=== PATIENT | male | born 1940 | race Caucasian/White ===

== ENCOUNTER 2018-09-30 16:12 | Observation (INO) | payer MEDICARE ==
[2018-09-30] MEDS ORDERED: Dextrose 5%-0.9% NaCl 1,000 ML IV SCH (17:45)
[2018-09-30] MEDS: Dextrose 5%-0.9% NaCl with KCl 1,000 ML IV SCH (19:50)
[2018-09-30] MEDS: Apixaban 5 MG Tab PO SCH (20:11)
[2018-09-30] MEDS: MAGIC MOUTH WASH PO SCH (20:11)
[2018-09-30] MEDS ORDERED: Acetaminophen 325 MG Tab ONE (21:35)
[2018-09-30] MEDS ORDERED: cefTRIAXone 1 GM AdvVial IV ONE (21:35)
[2018-09-30] MEDS: cefTRIAXone 1 GM in Sodium Chloride 0.9% 50 ML IV SCH (21:53)
[2018-09-30] MEDS: Acetaminophen/oxyCODONE 325-5 MG Tab PO PRN (22:02)
[2018-09-30] MEDS: Acetaminophen 325 MG Tab PO PRN (22:05)
[2018-10-01] MEDS: Acetaminophen/oxyCODONE 325-5 MG Tab PO PRN ×2 (01:44→07:50)
[2018-10-01] MEDS ORDERED: Dextrose 5%-0.9% NaCl with KCl 1,000 ML ONE ×3 (03:56→19:36)
[2018-10-01] MEDS: Dextrose 5%-0.9% NaCl with KCl 1,000 ML IV SCH ×3 (04:00→19:45)
[2018-10-01] MEDS: Acetaminophen 325 MG Tab PO PRN (04:06)
[2018-10-01] MEDS: Morphine 15 MG Tab.ER PO SCH (07:49)
[2018-10-01] MEDS: Apixaban 5 MG Tab PO SCH ×2 (07:49→19:48)
[2018-10-01] MEDS: Tamsulosin 0.4 MG Cap.ER PO SCH (07:51)
[2018-10-01] MEDS: MAGIC MOUTH WASH PO SCH ×4 (08:39→21:14)
--- NOTE | 2018-10-01 09:48 | PCM.PN ---
- General Info Date of Service: 10/01/18 Subjective Update: Patient showing improvement but still weakness and decreased appetite. He has continued sores and the vicous lidocaine only works for 15 minute when he applies it. Patient denies any dizziness, no shortness of breath, no chest pain and no other concerns. - Review of Systems General: Reports: Weakness HEENT: Reports: No Symptoms Pulmonary: Reports: No Symptoms Cardiovascular: Reports: No Symptoms Gastrointestinal: Reports: No Symptoms Genitourinary: Reports: No Symptoms Musculoskeletal: Reports: No Symptoms Skin: Reports: No Symptoms Neurological: Reports: Weakness Psychiatric: Reports: No Symptoms - Patient Data Vitals - Most Recent: Last Vital Signs Temp 37.8 C 10/01/18 04:00 Pulse 73 10/01/18 04:00 Resp 16 09/30/18 20:35 BP 103/59 L 10/01/18 04:00 Pulse Ox 97 10/01/18 04:00 Weight - Most Recent: 66.406 kg I&O - Last 24 Hours: Intake & Output 09/30/18 10/01/18 10/01/18 22:59 06:59 14:59 Intake Total 1450 Balance 1450 Lab Results Last 24 Hours: Laboratory Results - last 24 hr 09/30/18 09/30/18 09/30/18 Range/Units 16:18 16:18 16:26 WBC 3.9 L D (4.0-11.0) K/uL RBC 3.93 L (4.50-6.50) M/uL Hgb 10.4 L (13.0-18.0) g/dL Hct 33.1 L (40.0-54.0) % MCV 84 (76-96) fL MCH 26.5 L (27.0-32.0) pg MCHC 31.4 (31.0-35.0) g/dL RDW 14.9 (11.0-16.0) % Plt Count 313 D (150-400) K/uL MPV 9.0 (6.0-10.0) fL Neut % (Auto) 38.2 L (45.0-70.0) % Lymph % (Auto) 53.5 H (20.0-40.0) % [place] % (Auto) 7.0 (3.0-10.0) % Eos % (Auto) 0.8 L (1.0-5.0) % Baso % (Auto) 0.5 (0.0-0.5) % Neut # (Auto) 1.47 L (2.00-7.50) K/uL Lymph # (Auto) 2.06 (1.50-4.00) K/uL [place] # (Auto) 0.27 (0.20-0.80) K/uL Eos # (Auto) 0.03 L (0.04-0.40) K/uL Baso # (Auto) 0.02 (0.02-0.10) K/uL Sodium 137 (136-145) mmol/L Potassium 3.3 L (3.5-5.1) mmol/L Chloride 98 (98-107) mmol/L Carbon Dioxide 24.1 (21.0-32.0) mmol/L Anion Gap 18.2 H (5.0-15.0) mmol/L BUN 19 (8-26) mg/dL Creatinine 0.98 (0.70-1.30) mg/dL Est Cr Clr Drug Dosing TNP Estimated GFR (MDRD) > 60 (>60) MLS/MIN BUN/Creatinine Ratio 19.4 (6-25) Glucose 100 (74-100) mg/dL Calcium 8.0 L (8.5-10.1) mg/dL Total Bilirubin 0.3 (0.0-1.0) mg/dL AST 24 (15-37) U/L ALT 32 (12-78) U/L Alkaline Phosphatase 178 H (46-116) U/L Troponin I < 0.017 (0.000-0.060) ng/mL Total Protein 7.2 (6.4-8.2) g/dL Albumin 3.0 L (3.4-5.0) g/dL Globulin 4.2 (2.2-4.2) g/dL Albumin/Globulin Ratio 0.7 L (0.8-2.0) TSH, Ultra Sensitive 6.770 H (0.358-3.740) uIU/mL Urine Color Yellow Urine Appearance Clear (CLEAR) Urine pH 6.5 (5.0-8.0) Ur Specific [place] 1.025 (1.003-1.030) Urine Protein 30 H (NEGATIVE) mg/dL Urine Glucose (UA) Negative (NEGATIVE) mg/dL Urine Ketones Negative (NEGATIVE) mg/dL Urine Occult Blood Negative (NEGATIVE) Urine Nitrite Negative (NEGATIVE) Urine Bilirubin Small H (NEGATIVE) Urine Urobilinogen 1.0 (0.2-1.0) E.U./dL Ur Leukocyte Esterase Negative (NEGATIVE) Urine RBC Not seen /HPF Urine WBC 0-5 H /HPF Ur Squamous Epith Cells Few /HPF 10/01/18 10/01/18 Range/Units 07:33 07:33 WBC 2.4 L D (4.0-11.0) K/uL RBC 3.19 L (4.50-6.50) M/uL Hgb 8.5 L (13.0-18.0) g/dL Hct 26.7 L (40.0-54.0) % MCV 84 (76-96) fL MCH 26.6 L (27.0-32.0) pg MCHC 31.8 (31.0-35.0) g/dL RDW 14.8 (11.0-16.0) % Plt Count 283 (150-400) K/uL MPV 8.8 (6.0-10.0) fL Neut % (Auto) 38.5 L (45.0-70.0) % Lymph % (Auto) 48.3 H (20.0-40.0) % [place] % (Auto) 12.4 H (3.0-10.0) % Eos % (Auto) 0.4 L (1.0-5.0) % Baso % (Auto) 0.4 (0.0-0.5) % Neut # (Auto) 0.93 L (2.00-7.50) K/uL Lymph # (Auto) 1.17 L (1.50-4.00) K/uL [place] # (Auto) 0.30 (0.20-0.80) K/uL Eos # (Auto) 0.01 L (0.04-0.40) K/uL Baso # (Auto) 0.01 L (0.02-0.10) K/uL Sodium 139 (136-145) mmol/L Potassium 3.4 L (3.5-5.1) mmol/L Chloride 105 (98-107) mmol/L Carbon Dioxide 24.3 (21.0-32.0) mmol/L Anion Gap 13.1 (5.0-15.0) mmol/L BUN 18 (8-26) mg/dL Creatinine 0.63 L D (0.70-1.30) mg/dL Est Cr Clr Drug Dosing TNP Estimated GFR (MDRD) > 60 (>60) MLS/MIN BUN/Creatinine Ratio 28.6 H (6-25) Glucose 123 H (74-100) mg/dL Calcium 7.3 L (8.5-10.1) mg/dL Total Bilirubin 0.3 (0.0-1.0) mg/dL AST 22 (15-37) U/L ALT 24 (12-78) U/L Alkaline Phosphatase 145 H (46-116) U/L Troponin I (0.000-0.060) ng/mL Total Protein 5.2 L (6.4-8.2) g/dL Albumin 2.4 L (3.4-5.0) g/dL Globulin 2.8 (2.2-4.2) g/dL Albumin/Globulin Ratio 0.9 (0.8-2.0) TSH, Ultra Sensitive (0.358-3.740) uIU/mL Urine Color Urine Appearance (CLEAR) Urine pH (5.0-8.0) Ur Specific [place] (1.003-1.030) Urine Protein (NEGATIVE) mg/dL Urine Glucose (UA) (NEGATIVE) mg/dL Urine Ketones (NEGATIVE) mg/dL Urine Occult Blood (NEGATIVE) Urine Nitrite (NEGATIVE) Urine Bilirubin (NEGATIVE) Urine Urobilinogen (0.2-1.0) E.U./dL Ur Leukocyte Esterase (NEGATIVE) Urine RBC /HPF Urine WBC /HPF Ur Squamous Epith Cells /HPF Med Orders - Current: Current Medications Acetaminophen (Tylenol) 650 mg PO Q6H PRN PRN Reason: Fever Last Admin: 10/01/18 04:06 Dose: 650 mg Apixaban (Eliquis) 5 mg PO BID [facility] Last Admin: 10/01/18 07:49 Dose: 5 mg Potassium Chloride/Dextrose/Sod Cl (D5 Ns With 20 Meq Kcl) 1,000 mls @ 125 mls/ hr IV ASDIRECTED [facility] Last Admin: 10/01/18 04:00 Dose: 125 mls/hr Ceftriaxone Sodium 1 gm/ (Sodium Chloride) 50 mls @ 100 mls/hr IV Q24H [facility] Last Admin: 09/30/18 21:53 Dose: 100 mls/hr Morphine Sulfate (Ms Contin) 15 mg PO DAILY [facility] Last Admin: 10/01/18 07:49 Dose: 15 mg Magic Mouth Wash 10 each PO QID [facility] Last Admin: 10/01/18 08:39 Dose: 10 each Oxycodone/Acetaminophen (Percocet 325-5 Mg) 1 tab PO Q4H PRN PRN Reason: PAIN Last Admin: 10/01/18 07:50 Dose: 1 tab Tamsulosin HCl (Flomax) 0.4 mg PO DAILY [facility] Last Admin: 10/01/18 07:51 Dose: 0.4 mg Discontinued Medications Acetaminophen (Tylenol) Confirm Administered Dose 650 mg .ROUTE .STK-MED ONE Stop: 09/30/18 21:36 Last Admin: 09/30/18 22:11 Dose: Not Given Ceftriaxone Sodium (Rocephin) Confirm Administered Dose 1 gm IV .STK-MED ONE Stop: 09/30/18 21:36 Last Admin: 09/30/18 22:11 Dose: Not Given Potassium Chloride/Dextrose/Sod Cl (D5 Ns With 20 Meq Kcl) Confirm Administered Dose 1,000 mls @ as directed .ROUTE .STK-MED ONE Stop: 10/01/18 03:57 Last Admin: 10/01/18 04:10 Dose: Not Given - Exam General: Alert, Oriented, Cooperative HEENT: Pupils Equal, Pupils Reactive, EOMI Neck: Supple Lungs: Clear to Auscultation, Normal Respiratory Effort Cardiovascular: Regular Rate, Regular Rhythm GI/Abdominal Exam: Normal Bowel Sounds Back Exam: Normal Inspection Extremities: Normal Inspection, Normal Range of Motion - Problem List & Annotations (1) Weakness SNOMED Code(s): 46075971 Code(s): R53.1 - WEAKNESS Status: Acute (2) Anemia SNOMED Code(s): 606508577 Code(s): D64.9 - ANEMIA, UNSPECIFIED Status: Acute (3) Dehydration SNOMED Code(s): 50265586 Code(s): E86.0 - DEHYDRATION Status: Acute (4) Electrolyte abnormality SNOMED Code(s): 703056996 Code(s): E87.8 - OTH DISORDERS OF ELECTROLYTE AND FLUID BALANCE, NEC Status : Acute (5) Aphthous ulcer of mouth SNOMED Code(s): 598447067 Code(s): K12.0 - RECURRENT ORAL APHTHAE Status: Acute (6) Thrush SNOMED Code(s): 24451867 Code(s): B37.0 - CANDIDAL STOMATITIS Status: Acute - Problem List Review Problem List Initiated/Reviewed/Updated: Yes - My Orders Last 24 Hours: My Active Orders 09/30/18 17:40 Patient Status [ADT] Routine Oxygen Therapy [RC] PRN Up With Assistance [RC] ASDIRECTED Vital Signs [RC] Q4H Resuscitation Status Routine 09/30/18 18:06 Acetaminophen/oxyCODONE [Percocet 325-5 MG] 1 tab PO Q4H PRN 09/30/18 18:15 Dextrose 5%-0.9% NaCl with KCl [D5 NS with 20 mEq KCl] 1,000 ml IV ASDIRECTED 09/30/18 20:00 Apixaban [Eliquis] 5 mg PO BID Non-Formulary Medication [NF Drug] 10 each PO QID 09/30/18 21:29 Acetaminophen [Tylenol] 650 mg PO Q6H PRN 09/30/18 22:00 cefTRIAXone [Rocephin] 1 gm Sodium Chloride 0.9% [Normal Saline] 50 ml IV Q24H 10/01/18 08:00 Morphine [MS Contin] 15 mg PO DAILY Tamsulosin [Flomax] 0.4 mg PO DAILY 10/01/18 09:39 CULTURE BLOOD [BC] Routine 10/01/18 09:40 CULTURE BLOOD [BC] Routine - Plan Plan:: Counseled on continued management of oral ulcers and management of thrush. Discussed anemia and blood transfusion and continued monitoring. We will f/u thyroid labs. Continue hydration and repeat labs in am.
--- NOTE | 2018-10-01 09:48 | PCM.HP ---
H&P History of Present Illness - General Date of Service: 09/30/18 Admit Problem/Dx: Admission Diagnosis/Problem Admission Diagnosis/Problem Weakness Source of Information: Patient, Family History Limitations: Reports: No Limitations - History of Present Illness Initial Comments - Free Text/Narative: This is a 78yo M with recent radiation therapy who presented to clinic with weakness, fatigue, not eating for 3 days and very little hydration. He has multiple lesions of the tongue, and white patches of the back of the tongue. He states he doesn't feel well and just all over. Duration of Symptoms: Reports: Day(s):, Getting Worse Quality: Reports: Burning Severity: Moderate Improves with: Reports: None Worsens with: Reports: Eating Associated Symptoms: Reports: Loss of Appetite, Weakness Oral/Mouth Pain Score (Numeric/FACES): 5 - Related Data Allergies/Adverse Reactions: Allergies Allergy/AdvReac Type Severity Reaction Status Date / Time No Known Allergies Allergy Verified 08/28/18 17:39 Social & Family History - Tobacco Use Smoking Status *Q: Unknown Ever Smoked H&P Review of Systems - Review of Systems: Review Of Systems: ROS reveals no pertinent complaints other than HPI. Exam - Exam Exam: See Below - Vital Signs Vital Signs: Last Vital Signs Temp 37.8 C 10/01/18 04:00 Pulse 73 10/01/18 04:00 Resp 16 09/30/18 20:35 BP 103/59 L 10/01/18 04:00 Pulse Ox 97 10/01/18 04:00 Weight: 66.406 kg - Exam General: Alert, Oriented, Cooperative HEENT: PERRLA, Conjunctiva Clear, EACs Clear Neck: Supple, Trachea Midline Lungs: Clear to Auscultation, Normal Respiratory Effort Cardiovascular: Regular Rate, Regular Rhythm GI/Abdominal Exam: Abnormal Bowel Sounds (decreased) Back Exam: Normal Inspection Extremities: Normal Inspection - Patient Data Lab Results Last 24 hrs: Laboratory Results - last 24 hr 09/30/18 09/30/18 09/30/18 Range/Units 16:18 16:18 16:26 WBC 3.9 L D (4.0-11.0) K/uL RBC 3.93 L (4.50-6.50) M/uL Hgb 10.4 L (13.0-18.0) g/dL Hct 33.1 L (40.0-54.0) % MCV 84 (76-96) fL MCH 26.5 L (27.0-32.0) pg MCHC 31.4 (31.0-35.0) g/dL RDW 14.9 (11.0-16.0) % Plt Count 313 D (150-400) K/uL MPV 9.0 (6.0-10.0) fL Neut % (Auto) 38.2 L (45.0-70.0) % Lymph % (Auto) 53.5 H (20.0-40.0) % [place] % (Auto) 7.0 (3.0-10.0) % Eos % (Auto) 0.8 L (1.0-5.0) % Baso % (Auto) 0.5 (0.0-0.5) % Neut # (Auto) 1.47 L (2.00-7.50) K/uL Lymph # (Auto) 2.06 (1.50-4.00) K/uL [place] # (Auto) 0.27 (0.20-0.80) K/uL Eos # (Auto) 0.03 L (0.04-0.40) K/uL Baso # (Auto) 0.02 (0.02-0.10) K/uL Sodium 137 (136-145) mmol/L Potassium 3.3 L (3.5-5.1) mmol/L Chloride 98 (98-107) mmol/L Carbon Dioxide 24.1 (21.0-32.0) mmol/L Anion Gap 18.2 H (5.0-15.0) mmol/L BUN 19 (8-26) mg/dL Creatinine 0.98 (0.70-1.30) mg/dL Est Cr Clr Drug Dosing TNP Estimated GFR (MDRD) > 60 (>60) MLS/MIN BUN/Creatinine Ratio 19.4 (6-25) Glucose 100 (74-100) mg/dL Calcium 8.0 L (8.5-10.1) mg/dL Total Bilirubin 0.3 (0.0-1.0) mg/dL AST 24 (15-37) U/L ALT 32 (12-78) U/L Alkaline Phosphatase 178 H (46-116) U/L Troponin I < 0.017 (0.000-0.060) ng/mL Total Protein 7.2 (6.4-8.2) g/dL Albumin 3.0 L (3.4-5.0) g/dL Globulin 4.2 (2.2-4.2) g/dL Albumin/Globulin Ratio 0.7 L (0.8-2.0) TSH, Ultra Sensitive 6.770 H (0.358-3.740) uIU/mL Urine Color Yellow Urine Appearance Clear (CLEAR) Urine pH 6.5 (5.0-8.0) Ur Specific [place] 1.025 (1.003-1.030) Urine Protein 30 H (NEGATIVE) mg/dL Urine Glucose (UA) Negative (NEGATIVE) mg/dL Urine Ketones Negative (NEGATIVE) mg/dL Urine Occult Blood Negative (NEGATIVE) Urine Nitrite Negative (NEGATIVE) Urine Bilirubin Small H (NEGATIVE) Urine Urobilinogen 1.0 (0.2-1.0) E.U./dL Ur Leukocyte Esterase Negative (NEGATIVE) Urine RBC Not seen /HPF Urine WBC 0-5 H /HPF Ur Squamous Epith Cells Few /HPF 10/01/18 10/01/18 Range/Units 07:33 07:33 WBC 2.4 L D (4.0-11.0) K/uL RBC 3.19 L (4.50-6.50) M/uL Hgb 8.5 L (13.0-18.0) g/dL Hct 26.7 L (40.0-54.0) % MCV 84 (76-96) fL MCH 26.6 L (27.0-32.0) pg MCHC 31.8 (31.0-35.0) g/dL RDW 14.8 (11.0-16.0) % Plt Count 283 (150-400) K/uL MPV 8.8 (6.0-10.0) fL Neut % (Auto) 38.5 L (45.0-70.0) % Lymph % (Auto) 48.3 H (20.0-40.0) % [place] % (Auto) 12.4 H (3.0-10.0) % Eos % (Auto) 0.4 L (1.0-5.0) % Baso % (Auto) 0.4 (0.0-0.5) % Neut # (Auto) 0.93 L (2.00-7.50) K/uL Lymph # (Auto) 1.17 L (1.50-4.00) K/uL [place] # (Auto) 0.30 (0.20-0.80) K/uL Eos # (Auto) 0.01 L (0.04-0.40) K/uL Baso # (Auto) 0.01 L (0.02-0.10) K/uL Sodium 139 (136-145) mmol/L Potassium 3.4 L (3.5-5.1) mmol/L Chloride 105 (98-107) mmol/L Carbon Dioxide 24.3 (21.0-32.0) mmol/L Anion Gap 13.1 (5.0-15.0) mmol/L BUN 18 (8-26) mg/dL Creatinine 0.63 L D (0.70-1.30) mg/dL Est Cr Clr Drug Dosing TNP Estimated GFR (MDRD) > 60 (>60) MLS/MIN BUN/Creatinine Ratio 28.6 H (6-25) Glucose 123 H (74-100) mg/dL Calcium 7.3 L (8.5-10.1) mg/dL Total Bilirubin 0.3 (0.0-1.0) mg/dL AST 22 (15-37) U/L ALT 24 (12-78) U/L Alkaline Phosphatase 145 H (46-116) U/L Troponin I (0.000-0.060) ng/mL Total Protein 5.2 L (6.4-8.2) g/dL Albumin 2.4 L (3.4-5.0) g/dL Globulin 2.8 (2.2-4.2) g/dL Albumin/Globulin Ratio 0.9 (0.8-2.0) TSH, Ultra Sensitive (0.358-3.740) uIU/mL Urine Color Urine Appearance (CLEAR) Urine pH (5.0-8.0) Ur Specific [place] (1.003-1.030) Urine Protein (NEGATIVE) mg/dL Urine Glucose (UA) (NEGATIVE) mg/dL Urine Ketones (NEGATIVE) mg/dL Urine Occult Blood (NEGATIVE) Urine Nitrite (NEGATIVE) Urine Bilirubin (NEGATIVE) Urine Urobilinogen (0.2-1.0) E.U./dL Ur Leukocyte Esterase (NEGATIVE) Urine RBC /HPF Urine WBC /HPF Ur Squamous Epith Cells /HPF Result Diagrams: 10/02/18 07:05 10/02/18 07:05 - Problem List (1) Anemia SNOMED Code(s): 429858462 ICD Code: D64.9 - ANEMIA, UNSPECIFIED Status: Acute (2) Aphthous ulcer of mouth SNOMED Code(s): 207064977 ICD Code: K12.0 - RECURRENT ORAL APHTHAE Status: Acute (3) Dehydration SNOMED Code(s): 74742960 ICD Code: E86.0 - DEHYDRATION Status: Acute (4) Electrolyte abnormality SNOMED Code(s): 123404945 ICD Code: E87.8 - OTH DISORDERS OF ELECTROLYTE AND FLUID BALANCE, NEC Status: Acute (5) Thrush SNOMED Code(s): 22189300 ICD Code: B37.0 - CANDIDAL STOMATITIS Status: Acute (6) Weakness SNOMED Code(s): 49576746 ICD Code: R53.1 - WEAKNESS Status: Acute Problem List Initiated/Reviewed/Updated: Yes Orders Last 24hrs: Active Orders 24 hr Category Date Time Status Patient Status [ADT] Routine ADT 09/30/18 17:40 Active Oxygen Therapy [RC] PRN Care 09/30/18 17:40 Active Up With Assistance [RC] ASDIRECTED Care 09/30/18 17:40 Active Vital Signs [RC] Q4H Care 09/30/18 17:40 Active CULTURE BLOOD [BC] Routine Lab 10/01/18 09:39 Ordered CULTURE BLOOD [BC] Routine Lab 10/01/18 09:40 Ordered Acetaminophen [Tylenol] Med 09/30/18 21:29 Active 650 mg PO Q6H PRN Acetaminophen/oxyCODONE [Percocet 325-5 MG] Med 09/30/18 18:06 Active 1 tab PO Q4H PRN Apixaban [Eliquis] Med 09/30/18 20:00 Active 5 mg PO BID Dextrose 5%-0.9% NaCl with KCl [D5 NS with 20 mEq KCl] Med 09/30/18 18:15 Active 1,000 ml IV ASDIRECTED Morphine [MS Contin] Med 10/01/18 08:00 Active 15 mg PO DAILY Non-Formulary Medication [NF Drug] Med 09/30/18 20:00 Active 10 each PO QID Tamsulosin [Flomax] Med 10/01/18 08:00 Active 0.4 mg PO DAILY cefTRIAXone [Rocephin] 1 gm Med 09/30/18 22:00 Active Sodium Chloride 0.9% [Normal Saline] 50 ml IV Q24H Resuscitation Status Routine Resus Stat 09/30/18 17:40 Ordered Medication Orders Acetaminophen (Tylenol) 650 mg PO Q6H PRN PRN Reason: Fever Last Admin: 10/01/18 04:06 Dose: 650 mg Admin: 09/30/18 22:05 Dose: 325 mg Apixaban (Eliquis) 5 mg PO BID [facility] Last Admin: 10/01/18 07:49 Dose: 5 mg Admin: 09/30/18 20:11 Dose: 5 mg Potassium Chloride/Dextrose/Sod Cl (D5 Ns With 20 Meq Kcl) 1,000 mls @ 125 mls/ hr IV ASDIRECTED [facility] Last Admin: 10/01/18 04:00 Dose: 125 mls/hr Infusion: 10/01/18 03:50 Dose: 125 mls/hr Admin: 09/30/18 19:50 Dose: 125 mls/hr Ceftriaxone Sodium 1 gm/ (Sodium Chloride) 50 mls @ 100 mls/hr IV Q24H [facility] Last Admin: 09/30/18 21:53 Dose: 100 mls/hr Morphine Sulfate (Ms Contin) 15 mg PO DAILY [facility] Last Admin: 10/01/18 07:49 Dose: 15 mg Magic Mouth Wash 10 each PO QID [facility] Last Admin: 10/01/18 08:39 Dose: 10 each Admin: 09/30/18 20:11 Dose: Not Given Oxycodone/Acetaminophen (Percocet 325-5 Mg) 1 tab PO Q4H PRN PRN Reason: PAIN Last Admin: 10/01/18 07:50 Dose: 1 tab Admin: 10/01/18 01:44 Dose: 1 tab Admin: 09/30/18 22:02 Dose: 1 tab Tamsulosin HCl (Flomax) 0.4 mg PO DAILY [facility] Last Admin: 10/01/18 07:51 Dose: 0.4 mg Assessment/Plan Comment:: Patient to be placed in observation for weakness, dehydration and IVF hydration. We will f/u anemia, weakness and manage apthous ulcers and thrush. F/ u in am.
[2018-10-01] MEDS: MG PLUS PROTEIN PO SCH ×3 (11:04→19:49)
[2018-10-01] MEDS ORDERED: Loperamide 2 MG Cap PO PRN (12:18)
[2018-10-01] MEDS: cefTRIAXone 1 GM in Sodium Chloride 0.9% 50 ML IV SCH (21:52)
[2018-10-02] MEDS ORDERED: Dextrose 5%-0.9% NaCl with KCl 1,000 ML ONE (04:21)
[2018-10-02] MEDS: Dextrose 5%-0.9% NaCl with KCl 1,000 ML IV SCH (04:24)
[2018-10-02] MEDS: Acetaminophen/oxyCODONE 325-5 MG Tab PO PRN (05:36)
[2018-10-02] MEDS: MAGIC MOUTH WASH PO SCH ×2 (06:25→11:36)
[2018-10-02] MEDS: Morphine 15 MG Tab.ER PO SCH (07:07)
[2018-10-02] MEDS: Apixaban 5 MG Tab PO SCH (08:05)
[2018-10-02] MEDS: Tamsulosin 0.4 MG Cap.ER PO SCH (08:06)
[2018-10-02] MEDS: MG PLUS PROTEIN PO SCH (08:06)
--- NOTE | 2018-10-02 14:02 | PCM.DCSUM1 ---
Discharge Summary - Discharge Data Discharge Date: 10/02/18 Discharge Disposition: Home, Self-Care 01 Condition: Good - Patient Instructions Diet: Usual Diet as Tolerated Activity: Rest and Relax Today Driving: Do Not Drive - Discharge Plan Patient Handouts: Neutropenia - Discharge Summary/Plan Comment DC Time >30 min.: No Discharge Summary/Plan Comment: Patient setup with Home health and cares. He will f/u at [facility] for labs and Oncology. RTC next week for f/u skin irritation of the port area with trial of Eucrisa at this time. Patient to f/u in ER or clinic if any concerns or issues. Discussed low blood pressure but patient denies any symptoms of dizziness and feels that his weakness has resolved. Discussed low WBC and monitoring. He has been low and his Oncologist is also monitoring it. Discussed anemia and f/u recheck. Sister, son and Viridiana (home health) present on discharge and instructions. - Patient Data Vitals - Most Recent: Last Vital Signs Temp 37.3 C 10/02/18 08:00 Pulse 67 10/02/18 08:00 Resp 16 10/02/18 08:00 BP 90/51 L 10/02/18 08:00 Pulse Ox 97 10/02/18 08:00 Weight - Most Recent: 66.224 kg I&O - Last 24 hours: Intake & Output 10/01/18 10/02/18 10/02/18 22:59 06:59 14:59 Intake Total 740 3111 Balance 740 3111 Lab Results - Last 24 hrs: Laboratory Results - last 24 hr 10/01/18 10/02/18 10/02/18 Range/Units 07:30 07:05 07:05 WBC 3.2 L D (4.0-11.0) K/uL RBC 3.65 L (4.50-6.50) M/uL Hgb 9.6 L (13.0-18.0) g/dL Hct 30.2 L (40.0-54.0) % MCV 83 (76-96) fL MCH 26.3 L (27.0-32.0) pg MCHC 31.8 (31.0-35.0) g/dL RDW 15.6 (11.0-16.0) % Plt Count 270 (150-400) K/uL MPV 9.3 (6.0-10.0) fL Neut % (Auto) 41.8 L (45.0-70.0) % Lymph % (Auto) 42.7 H (20.0-40.0) % [place] % (Auto) 14.6 H (3.0-10.0) % Eos % (Auto) 0.6 L (1.0-5.0) % Baso % (Auto) 0.3 (0.0-0.5) % Neut # (Auto) 1.32 L (2.00-7.50) K/uL Lymph # (Auto) 1.35 L (1.50-4.00) K/uL [place] # (Auto) 0.46 (0.20-0.80) K/uL Eos # (Auto) 0.02 L (0.04-0.40) K/uL Baso # (Auto) 0.01 L (0.02-0.10) K/uL Sodium 140 (136-145) mmol/L Potassium 3.5 (3.5-5.1) mmol/L Chloride 107 (98-107) mmol/L Carbon Dioxide 20.7 L (21.0-32.0) mmol/L Anion Gap 15.8 H (5.0-15.0) mmol/L BUN 9 D (8-26) mg/dL Creatinine 0.54 L (0.70-1.30) mg/dL Est Cr Clr Drug Dosing 102.48 mL/min Estimated GFR (MDRD) > 60 (>60) MLS/MIN BUN/Creatinine Ratio 16.7 (6-25) Glucose 103 H (74-100) mg/dL Calcium 7.5 L (8.5-10.1) mg/dL Blood Type O POSITIVE Gel Antibody Screen Negative Crossmatch See Detail [facility] Results - Last 24 hrs: Microbiology 10/01/18 09:45 Aerobic Blood Culture - Preliminary Blood NO GROWTH AFTER 1 DAY Anaerobic Blood Culture - Preliminary NO GROWTH AFTER 1 DAY 10/01/18 10:00 Aerobic Blood Culture - Preliminary Blood NO GROWTH AFTER 1 DAY Anaerobic Blood Culture - Preliminary NO GROWTH AFTER 1 DAY Med Orders - Current: Current Medications Acetaminophen (Tylenol) 650 mg PO Q6H PRN PRN Reason: Fever Last Admin: 10/01/18 04:06 Dose: 650 mg Apixaban (Eliquis) 5 mg PO BID [facility] Last Admin: 10/02/18 08:05 Dose: 5 mg Potassium Chloride/Dextrose/Sod Cl (D5 Ns With 20 Meq Kcl) 1,000 mls @ 125 mls/ hr IV ASDIRECTED [facility] Last Admin: 10/02/18 04:24 Dose: 125 mls/hr Ceftriaxone Sodium 1 gm/ (Sodium Chloride) 50 mls @ 100 mls/hr IV Q24H [facility] Last Admin: 10/01/18 21:52 Dose: 100 mls/hr Loperamide HCl (Imodium) 2 mg PO ASDIRECTED PRN PRN Reason: DIARRHEA Morphine Sulfate (Ms Contin) 15 mg PO DAILY [facility] Last Admin: 10/02/18 07:07 Dose: 15 mg Mg Plus Protein 1 each PO TID [facility] Last Admin: 10/02/18 08:06 Dose: 1 each Magic Mouth Wash 10 each PO QIDACANDBED [facility] Last Admin: 10/02/18 11:36 Dose: 10 each Oxycodone/Acetaminophen (Percocet 325-5 Mg) 1 tab PO Q4H PRN PRN Reason: PAIN Last Admin: 10/02/18 05:36 Dose: 1 tab Tamsulosin HCl (Flomax) 0.4 mg PO DAILY [facility] Last Admin: 10/02/18 08:06 Dose: 0.4 mg Discontinued Medications Acetaminophen (Tylenol) Confirm Administered Dose 650 mg .ROUTE .STK-MED ONE Stop: 09/30/18 21:36 Last Admin: 09/30/18 22:11 Dose: Not Given Ceftriaxone Sodium (Rocephin) Confirm Administered Dose 1 gm IV .STK-MED ONE Stop: 09/30/18 21:36 Last Admin: 09/30/18 22:11 Dose: Not Given Potassium Chloride/Dextrose/Sod Cl (D5 Ns With 20 Meq Kcl) Confirm Administered Dose 1,000 mls @ as directed .ROUTE .STK-MED ONE Stop: 10/01/18 03:57 Last Admin: 10/01/18 04:10 Dose: Not Given Potassium Chloride/Dextrose/Sod Cl (D5 Ns With 20 Meq Kcl) Confirm Administered Dose 1,000 mls @ as directed .ROUTE .STK-MED ONE Stop: 10/01/18 11:56 Last Admin: 10/01/18 19:40 Dose: Not Given Potassium Chloride/Dextrose/Sod Cl (D5 Ns With 20 Meq Kcl) Confirm Administered Dose 1,000 mls @ as directed .ROUTE .STK-MED ONE Stop: 10/01/18 19:37 Last Admin: 10/01/18 19:50 Dose: Not Given Potassium Chloride/Dextrose/Sod Cl (D5 Ns With 20 Meq Kcl) Confirm Administered Dose 1,000 mls @ as directed .ROUTE .STK-MED ONE Stop: 10/02/18 04:22 Last Admin: 10/02/18 04:25 Dose: Not Given Magic Mouth Wash 10 each PO QID [facility]UEL Last Admin: 10/01/18 11:27 Dose: 10 each
== END 2018-10-02 14:15 | disposition home or self-care (01) ==
LOC: LB.CLINIC 16:12 → LB.MS 17:40
PROVIDERS: ADMIT Family Medicine; ATTEND Family Medicine
DX: D64.9 Anemia, unspecified (principal); K12.0 Recurrent oral aphthae; E86.0 Dehydration; B37.0 Candidal stomatitis; E87.8 Other disorders of electrolyte and fluid balance, not elsewhere classified
CPT/HCPCS: 36415; 36430; 80048; 80053; 81001; 84439; 84443; 84482; 84484; 85025; 86850; 86900; 86901; 86920; 86922; 87040; 96361; 96365; 96366; A9270; G0378; J0696; J3480; J7050; P9016; 99217; 99218; 99224

== ENCOUNTER 2018-12-19 11:06 | Emergency (ER) | payer MEDICARE ==
[2018-12-19] MEDS ORDERED: Lidocaine 2% Jelly 5 ML Urojet ONE ×2 (11:20→11:26)
--- NOTE | 2018-12-19 11:48 | EDM.PDOC ---
ED HPI GENERAL MEDICAL PROBLEM - General Chief Complaint: Genitourinary Problem Stated Complaint: UA RETENTION Time Seen by Provider: 12/19/18 11:30 Source of Information: Reports: Patient, Family, RN - History of Present Illness INITIAL COMMENTS - FREE TEXT/NARRATIVE: 78 yo male presents with retention of urine for several weeks. States hx of prostate concerns/prostate cancer, cancer of liver and lung cancer, and recent visit to [place] and did have chemoembolization right liver on 12-15-2018. He has a tegaderm to the right groin and telfa to right abdomen/liver area. Dressings are dry and intact. States no fever at home. He has a return appointment in [address] Machuca. He is taking Eliquis and Augmentin. He does have an appointment with Dr Chowdhury next week and with urology next week at [facility]. Abdominal Pain Score (Numeric/FACES): 0 - Related Data Allergies Allergy/AdvReac Type Severity Reaction Status Date / Time No Known Allergies Allergy Verified 12/19/18 15:27 ED ROS GENERAL - Review of Systems Review Of Systems: See Below Constitutional: Reports: No Symptoms HEENT: Reports: No Symptoms Respiratory: Reports: No Symptoms. Denies: Shortness of Breath, Wheezing, Cough Cardiovascular: Reports: Blood Pressure Problem. Denies: Chest Pain Endocrine: Reports: No Symptoms GI/Abdominal: Reports: Other (some incontinence and does wear a depends for protection.) : Reports: Urinary Retention, Other (prostate cancer) Musculoskeletal: Reports: No Symptoms Skin: Reports: Other (dressing to groin and liver area.) Neurological: Reports: No Symptoms Psychiatric: Reports: No Symptoms ED EXAM, RENAL/ - Physical Exam Exam: See Below Exam Limited By: No Limitations General Appearance: Alert, No Apparent Distress Ears: Normal External Exam, Hearing Grossly Normal Throat/Mouth: Normal Voice, No Airway Compromise Head: Atraumatic, Normocephalic Respiratory/Chest: No Respiratory Distress, Lungs Clear, Normal Breath Sounds Cardiovascular: Regular Rate, Rhythm, No Edema, Other (port to right chest) GI/Abdominal: Normal Bowel Sounds, Soft, Non-Tender, Hernia Extremities: Normal Range of Motion, Non-Tender, No Pedal Edema Neurological: Alert, Oriented, Normal Cognition Psychiatric: Normal Affect, Normal Mood Skin Exam: Warm, Dry, Normal Color, Wound/Incision (to liver and to right groin. Bandage changed today to both areas. Area are clean and dry, no erythema.) Course - Vital Signs Last Recorded V/S: Last Vital Signs Temp 99.7 F 12/19/18 12:02 Pulse 111 H 12/19/18 12:02 Resp 16 12/19/18 12:02 BP 159/95 H 12/19/18 12:02 Pulse Ox 99 12/19/18 12:02 - Orders/Labs/Meds Labs: Laboratory Tests 12/19/18 Range/Units 11:43 Urine Color Yellow Urine Appearance Clear (CLEAR) Urine pH 7.0 (5.0-8.0) Ur Specific [place] 1.020 (1.003-1.030) Urine Protein Negative (NEGATIVE) mg/dL Urine Glucose (UA) Negative (NEGATIVE) mg/dL Urine Ketones Negative (NEGATIVE) mg/dL Urine Occult Blood Negative (NEGATIVE) Urine Nitrite Negative (NEGATIVE) Urine Bilirubin Negative (NEGATIVE) Urine Urobilinogen 0.2 (0.2-1.0) E.U./dL Ur Leukocyte Esterase Negative (NEGATIVE) Meds: Medications Discontinued Medications Generic Name Dose Route Start Last Admin Trade Name Freq PRN Reason Stop Dose Admin Lidocaine HCl Confirm 12/19/18 11:26 Xylocaine 2% Jelly Administered 12/19/18 11:27 Dose 5 ml .ROUTE .STK-MED ONE Lidocaine HCl Confirm 12/19/18 11:20 Xylocaine 2% Jelly Administered 12/19/18 11:21 Dose 5 ml .ROUTE .STK-MED ONE Lidocaine HCl 10 ml 12/19/18 15:26 12/19/18 11:25 Xylocaine 2% Jelly MUCMEM 12/19/18 15:27 10 ml ONETIME ONE Administration - Re-Assessments/Exams Free Text/Narrative Re-Assessment/Exam: 12/19/18 17:54 LE Catheter inserted per nursing and draining clear daniel urine. U/A collected and no leuk est and no nitrites noted. Pt states relief and comfortable now. Will discharge to care of significant other, education on catheter care and changing to leg bag as needed. F/U next week with urology. Departure - Departure Time of Disposition: 12:14 Disposition: Home, Self-Care 01 Condition: Fair Clinical Impression: Urinary retention, Prostate cancer - Discharge Information *PRESCRIPTION DRUG MONITORING PROGRAM REVIEWED*: Not Applicable *COPY OF PRESCRIPTION DRUG MONITORING REPORT IN PATIENT LALIT: Not Applicable Referrals: PCP,None [Primary Care Provider] - Forms: ED Department Discharge Care Plan Goals: Keep your follow up appointment with Urologist next week. Leave catheter in place ([address], [place]) until follow up appointment with Urologist. Complete Medrano cares twice a day: Clean with wash cloth and warm soapy water. Take the wash cloth and clean the catheter from the tip of your penis and down the catheter away from your body. Use a new area of the wash cloth with each pass on the catheter. Switch to the leg bag during the day and use the bigger bag while asleep at night, capping the bags when changing. Continue to take Flomax daily. Call hospital with any questions or concerns. - Assessment/Plan Plan: Urinary retention: Coude Medrano catheter in place and draining urine well. Discharge to care of significant other, education on catheter care and changing to leg bag as needed. F/U next week with urology.
[2018-12-19] MEDS ORDERED: Lidocaine 2% Jelly 10 ML Urojet MUCMEM ONE (15:26)
== END 2018-12-19 12:20 | disposition home or self-care (01) ==
LOC: LB.ED 11:06
DX: R33.9 Retention of urine, unspecified (principal); C61 Malignant neoplasm of prostate; Z85.46 Personal history of malignant neoplasm of prostate; Z85.05 Personal history of malignant neoplasm of liver
CPT/HCPCS: 51702; 51798; 81003; 99283; 99284-25

== ENCOUNTER 2018-12-25 10:38 | Emergency (ER) | payer MEDICARE ==
--- NOTE | 2018-12-25 14:31 | EDM.PDOC ---
ED HPI GENERAL MEDICAL PROBLEM - General Chief Complaint: Genitourinary Problem Stated Complaint: unable to void Time Seen by Provider: 12/25/18 11:50 Source of Information: Reports: Patient, RN, Other (homecare RN) History Limitations: Reports: No Limitations - History of Present Illness INITIAL COMMENTS - FREE TEXT/NARRATIVE: 78 yo male presents with unable to void. He had been seen in the ER a couple weeks ago with this. He did have a urology appointment this week and the odonnell catheter was removed and pt was able to void. Today and last night, he has been unable to void. States he has routine visits for oncology and will continue to follow-up with this at [place], [place] - Related Data Allergies Allergy/AdvReac Type Severity Reaction Status Date / Time No Known Allergies Allergy Verified 12/19/18 15:27 Past Medical History Respiratory History: Reports: Other (See Below) Other Respiratory History: Lung cancer Gastrointestinal History: Reports: Other (See Below) Other Gastrointestinal History: large cecal mass, colon cancer Genitourinary History: Reports: Prostate Disorder Other Genitourinary History: Prostate cancer Hematologic History: Reports: Anticoagulation Therapy Oncologic (Cancer) History: Reports: Colon, Liver, Metastatic, Prostate - Infectious Disease History Infectious Disease History: Reports: Measles, Mumps, Rubella - Past Surgical History GI Surgical History: Reports: Other (See Below) Other GI Surgeries/Procedures: Hemicolectomy Social & Family History - Family History Family Medical History: Noncontributory ED ROS GENERAL - Review of Systems Review Of Systems: See Below Constitutional: Reports: Weakness Respiratory: Reports: No Symptoms Cardiovascular: Reports: No Symptoms : Reports: Urinary Retention, Other (unable to void) ED EXAM, RENAL/ - Physical Exam Exam: See Below Exam Limited By: No Limitations General Appearance: Alert, No Apparent Distress Throat/Mouth: Normal Voice, No Airway Compromise Head: Atraumatic, Normocephalic Neck: Normal Inspection, Full Range of Motion Respiratory/Chest: No Respiratory Distress, Lungs Clear, Normal Breath Sounds Cardiovascular: Regular Rate, Rhythm, No Edema GI/Abdominal: Normal Bowel Sounds, Soft, Non-Tender Neurological: Alert, Oriented, Normal Cognition Psychiatric: Normal Affect, Normal Mood Skin Exam: Warm, Dry, Other (pale in color) Course - Vital Signs Last Recorded V/S: Last Vital Signs Temp 97.9 F 12/25/18 11:30 Pulse 107 H 12/25/18 11:30 Resp 17 12/25/18 11:30 BP 89/43 L 12/25/18 11:30 Pulse Ox 99 12/25/18 11:30 - Re-Assessments/Exams Free Text/Narrative Re-Assessment/Exam: 12/25/18 14:29 Nurse was able to insert odonnell catheter, andrew. No difficulties with insertion and pt states comfort after odonnell catheter inserted. Homecare nurseShiolh is here with pt and will follow-up with pt. Departure - Departure Time of Disposition: 12:14 Disposition: Home, Self-Care 01 Condition: Good Clinical Impression: Retention of urine, Unable to void - Discharge Information *PRESCRIPTION DRUG MONITORING PROGRAM REVIEWED*: Not Applicable *COPY OF PRESCRIPTION DRUG MONITORING REPORT IN PATIENT LALIT: Not Applicable Referrals: PCP,None [Primary Care Provider] - Forms: ED Department Discharge - Assessment/Plan Plan: Continue with odonnell catheter and have follow-up next week with routine appointment at [facility], next week. Follow urology recommendation for catheter.
== END 2018-12-25 12:10 | disposition home or self-care (01) ==
LOC: LB.ED 10:38
DX: R33.9 Retention of urine, unspecified (principal)
CPT/HCPCS: 51702; 99282; 99283

== ENCOUNTER 2019-01-02 10:34 | Outpatient (CLI) | payer MEDICARE | END 2019-01-02 10:51 | disposition home or self-care (01) | LOC: LB.ACU 10:34 | PROVIDERS: ATTEND Internal Medicine | DX: C18.9 Malignant neoplasm of colon, unspecified (principal) | CPT/HCPCS: 96523; J1642 ==

== ENCOUNTER 2019-01-16 10:21 | Outpatient (CLI) | payer MEDICARE ==
[2019-01-16] MEDS: Sodium Chloride 0.9% 10 ML Syringe FLUSH ONE (11:04)
== END 2019-01-16 11:10 | disposition home or self-care (01) ==
LOC: LB.ACU 10:21
PROVIDERS: ATTEND Nurse Practitioner
DX: C18.9 Malignant neoplasm of colon, unspecified (principal)
CPT/HCPCS: 96523; J1642

== ENCOUNTER 2019-02-04 09:51 | Observation (INO) | payer MEDICARE ==
--- NOTE | 2019-02-04 10:40 | EDM.PDOC ---
ED HPI GENERAL MEDICAL PROBLEM - General Chief Complaint: General Stated Complaint: weakness Time Seen by Provider: 02/04/19 10:25 Source of Information: Reports: Patient, RN History Limitations: Reports: No Limitations - History of Present Illness INITIAL COMMENTS - FREE TEXT/NARRATIVE: 78 yo male presents with ulcers to mouth and unable to eat r/t pain. He reports chemotherapy about 1 week ago and sores started 1-2 days later. He has been using the viscous lidocaine for the mouth sores and no improvement. States he is able to drink some water and feels good on the inside of mouth. States no other pain at this time. Mireya, RN reports pt does come in 3x/week for outpatient IV fluids. Oral/Mouth Pain Score (Numeric/FACES): 8 - Related Data Allergies Allergy/AdvReac Type Severity Reaction Status Date / Time No Known Allergies Allergy Verified 02/04/19 10:15 Home Meds: Home Meds Lidocaine 2% [Xylocaine 2% Viscous] 100 ml .XX TIDMEALS PRN 02/04/19 [History] Sennosides/Docusate Sodium [Stool Softener-Laxative] 50 mg PO DAILY 02/04/19 [ History] dexAMETHasone [Dexamethasone] 0.5 mg PO QID 02/04/19 [History] oxyCODONE 5 mg PO Q4HR PRN 02/04/19 [History] Past Medical History Respiratory History: Reports: Other (See Below) Other Respiratory History: Lung cancer Gastrointestinal History: Reports: Other (See Below) Other Gastrointestinal History: large cecal mass, colon cancer Genitourinary History: Reports: Prostate Disorder Other Genitourinary History: Prostate cancer Hematologic History: Reports: Anticoagulation Therapy Oncologic (Cancer) History: Reports: Colon, Liver, Metastatic, Prostate - Infectious Disease History Infectious Disease History: Reports: Measles, Mumps, Rubella - Past Surgical History GI Surgical History: Reports: Other (See Below) Other GI Surgeries/Procedures: Hemicolectomy Social & Family History - Family History Family Medical History: Noncontributory ED ROS GENERAL - Review of Systems Review Of Systems: See Below Constitutional: Reports: No Symptoms HEENT: Reports: Throat Pain. Denies: Eye Discharge, Eye Pain, Throat Swelling Respiratory: Reports: No Symptoms Cardiovascular: Reports: No Symptoms GI/Abdominal: Reports: Decreased Appetite, Other (sores to inside of mouth, some loose stools). Denies: Abdominal Pain, Hematemesis, Hematochezia : Reports: No Symptoms Musculoskeletal: Reports: No Symptoms Skin: Reports: Other (sores to inside of mouth) Neurological: Reports: No Symptoms Psychiatric: Reports: No Symptoms ED EXAM, GENERAL - Physical Exam Exam: See Below Exam Limited By: No Limitations General Appearance: Alert, No Apparent Distress Ears: Hearing Grossly Normal Throat/Mouth: Normal Inspection, Normal Voice, No Airway Compromise, Other ( ulcers noted to tongue, erythema noted to posterior pharynx) Head: Atraumatic, Normocephalic Neck: Normal Inspection, Supple, Non-Tender Respiratory/Chest: No Respiratory Distress, Lungs Clear, Normal Breath Sounds Cardiovascular: Normal Peripheral Pulses, Regular Rate, Rhythm, No Edema GI/Abdominal: Normal Bowel Sounds, Soft, Non-Tender Extremities: Non-Tender, No Pedal Edema Neurological: Alert, Oriented, Normal Cognition Psychiatric: Normal Affect, Normal Mood Skin Exam: Warm, Dry, Other (pale) Course - Vital Signs Last Recorded V/S: Last Vital Signs Temp 98.8 F 02/04/19 12:09 Pulse 49 L 02/04/19 12:09 Resp 18 02/04/19 12:09 BP 143/109 H 02/04/19 12:09 Pulse Ox 92 L 02/04/19 12:09 - Orders/Labs/Meds Orders: Active Orders 24 hr Category Date Time Status Patient Status [ADT] Routine ADT 02/04/19 11:48 Active Vital Signs [RC] Q4H Care 02/04/19 12:09 Ordered Clear Liquid Diet [DIET] Diet 02/04/19 Lunch Ordered CULTURE MRSA SURVEY [RM] Routine Lab 02/04/19 12:22 Ordered Dextrose 5%-0.45% NaCl [Dextrose 5%-1/2 NS] 1,000 ml Med 02/04/19 10:45 Active IV ASDIRECTED Diphenhyd/Lidocaine/Nystatin [Magic Mouthwash] Med 02/04/19 12:00 Ordered 5 ml PO QID Lidocaine 2% [Xylocaine 2% Viscous] Med 02/04/19 12:55 Ordered 5 ml .XX TIDMEALS PRN Sennosides/Docusate Sodium [Stool Softener-Laxative] Med 02/05/19 08:00 Ordered 50 mg PO DAILY dexAMETHasone [Dexamethasone] Med 02/04/19 16:00 Stop Req 0.5 mg PO QID dexAMETHasone [Dexamethasone] Med 02/04/19 16:00 Ordered 10 ml PO QID oxyCODONE [oxyCODONE] Med 02/04/19 12:08 Ordered 5 mg PO Q4HR PRN Code Status [Resuscitation Status] Routine Resus Stat 02/04/19 12:22 Ordered Medication Orders Diphenhydramine/Nystatin/Lidocaine (Magic Mouthwash) 5 ml PO QID [facility] Dextrose/Sodium Chloride (Dextrose 5%-1/2 Ns) 1,000 mls @ 125 mls/hr IV ASDIRECTED [facility] Last Admin: 02/04/19 11:50 Dose: 125 mls/hr Non-Formulary Medication (Dexamethasone [Dexamethasone]) 0.5 mg PO QID [facility] Last Admin: 02/04/19 12:38 Dose: 0.5 mg Non-Formulary Medication (Oxycodone [Oxycodone]) 5 mg PO Q4HR PRN PRN Reason: Pain Non-Formulary Medication (Sennosides/Docusate Sodium [Stool Softener-Laxative]) 50 mg PO DAILY [facility] Non-Formulary Medication (Lidocaine 2% [Xylocaine 2% Viscous]) 5 ml .XX TIDMEALS PRN PRN Reason: Pain Labs: Laboratory Tests 02/04/19 02/04/19 Range/Units 10:31 10:31 WBC 2.4 L D (4.0-11.0) K/uL RBC 3.62 L (4.50-6.50) M/uL Hgb 9.5 L (13.0-18.0) g/dL Hct 29.8 L (40.0-54.0) % MCV 82 (76-96) fL MCH 26.2 L (27.0-32.0) pg MCHC 31.9 (31.0-35.0) g/dL RDW 17.8 H (11.0-16.0) % Plt Count 342 D (150-400) K/uL MPV 8.5 (6.0-10.0) fL Neut % (Auto) 45.4 (45.0-70.0) % Lymph % (Auto) 42.0 H (20.0-40.0) % [place] % (Auto) 11.8 H (3.0-10.0) % Eos % (Auto) 0.4 L (1.0-5.0) % Baso % (Auto) 0.4 (0.0-0.5) % Neut # (Auto) 1.08 L (2.00-7.50) K/uL Lymph # (Auto) 1.00 L (1.50-4.00) K/uL [place] # (Auto) 0.28 (0.20-0.80) K/uL Eos # (Auto) 0.01 L (0.04-0.40) K/uL Baso # (Auto) 0.01 L (0.02-0.10) K/uL Sodium 138 (136-145) mmol/L Potassium 3.7 (3.5-5.1) mmol/L Chloride 103 (98-107) mmol/L Carbon Dioxide 22.9 (21.0-32.0) mmol/L Anion Gap 15.8 H (5.0-15.0) mmol/L BUN 16 D (8-26) mg/dL Creatinine 0.56 L D (0.70-1.30) mg/dL Est Cr Clr Drug Dosing 97.87 mL/min Estimated GFR (MDRD) > 60 (>60) MLS/MIN BUN/Creatinine Ratio 28.6 H (6-25) Glucose 108 H (74-100) mg/dL Calcium 8.1 L (8.5-10.1) mg/dL Total Bilirubin 0.5 D (0.0-1.0) mg/dL AST 22 (15-37) U/L ALT 23 (12-78) U/L Alkaline Phosphatase 206 H (46-116) U/L Total Protein 6.3 L (6.4-8.2) g/dL Albumin 2.6 L (3.4-5.0) g/dL Globulin 3.7 (2.2-4.2) g/dL Albumin/Globulin Ratio 0.7 L (0.8-2.0) Meds: Medications Generic Name Dose Route Start Last Admin Trade Name Freq PRN Reason Stop Dose Admin Diphenhydramine/Nystatin/Lidocaine 5 ml 02/04/19 12:00 Magic Mouthwash PO QID JUAN MANUEL Dextrose/Sodium Chloride 1,000 mls @ 125 mls/hr 02/04/19 10:45 02/04/19 11:50 Dextrose 5%-1/2 Ns IV 125 mls/hr ASDIRECTED JUAN MANUEL Administration Non-Formulary Medication 0.5 mg 02/04/19 16:00 02/04/19 12:38 Dexamethasone [Dexamethasone] PO 0.5 mg QID JUAN MANUEL Administration Non-Formulary Medication 5 mg 02/04/19 12:08 Oxycodone [Oxycodone] PO Q4HR PRN Pain Non-Formulary Medication 50 mg 02/05/19 08:00 Sennosides/Docusate Sodium [Stool Softener-Laxative] PO DAILY JUAN MANUEL Non-Formulary Medication 5 ml 02/04/19 12:55 Lidocaine 2% [Xylocaine 2% Viscous] .XX TIDMEALS PRN Pain Discontinued Medications Generic Name Dose Route Start Last Admin Trade Name Freq PRN Reason Stop Dose Admin Non-Formulary Medication 100 ml 02/04/19 12:08 Lidocaine 2% [Xylocaine 2% Viscous] .XX TIDMEALS PRN Pain Departure - Departure Time of Disposition: 11:15 Disposition: Refer to Observation Condition: Fair Clinical Impression: Weakness, Aphthous ulcer of mouth - Discharge Information *PRESCRIPTION DRUG MONITORING PROGRAM REVIEWED*: Not Applicable *COPY OF PRESCRIPTION DRUG MONITORING REPORT IN PATIENT LALIT: Not Applicable Referrals: PCP,None [Primary Care Provider] - Forms: ED Department Discharge Sepsis Event Note - Evaluation Sepsis Screening Result: No Definite Risk - Focused Exam Vital Signs: Vital Signs Temp Pulse Resp BP Pulse Ox 02/04/19 12:09 98.8 F 49 L 18 143/109 H 92 L 02/04/19 10:03 97.7 F 109 H 20 100/72 98 Date Exam was Performed: 02/04/19 Time Exam was Performed: 12:58 - My Orders Last 24 Hours: My Active Orders 02/04/19 10:45 Dextrose 5%-0.45% NaCl [Dextrose 5%-1/2 NS] 1,000 ml IV ASDIRECTED 02/04/19 11:48 Patient Status [ADT] Routine 02/04/19 12:00 Diphenhyd/Lidocaine/Nystatin [Magic Mouthwash] 5 ml PO QID 02/04/19 12:08 oxyCODONE [oxyCODONE] 5 mg PO Q4HR PRN 02/04/19 12:09 Vital Signs [RC] Q4H 02/04/19 12:22 CULTURE MRSA SURVEY [RM] Routine Code Status [Resuscitation Status] Routine 02/04/19 12:55 Lidocaine 2% [Xylocaine 2% Viscous] 5 ml .XX TIDMEALS PRN 02/04/19 16:00 dexAMETHasone [Dexamethasone] 0.5 mg PO QID dexAMETHasone [Dexamethasone] 10 ml PO QID 02/04/19 Lunch Clear Liquid Diet [DIET] 02/05/19 08:00 Sennosides/Docusate Sodium [Stool Softener-Laxative] 50 mg PO DAILY - Assessment/Plan Last 24 Hours: My Active Orders 02/04/19 10:45 Dextrose 5%-0.45% NaCl [Dextrose 5%-1/2 NS] 1,000 ml IV ASDIRECTED 02/04/19 11:48 Patient Status [ADT] Routine 02/04/19 12:00 Diphenhyd/Lidocaine/Nystatin [Magic Mouthwash] 5 ml PO QID 02/04/19 12:08 oxyCODONE [oxyCODONE] 5 mg PO Q4HR PRN 02/04/19 12:09 Vital Signs [RC] Q4H 02/04/19 12:22 CULTURE MRSA SURVEY [RM] Routine Code Status [Resuscitation Status] Routine 02/04/19 12:55 Lidocaine 2% [Xylocaine 2% Viscous] 5 ml .XX TIDMEALS PRN 02/04/19 16:00 dexAMETHasone [Dexamethasone] 0.5 mg PO QID dexAMETHasone [Dexamethasone] 10 ml PO QID 02/04/19 Lunch Clear Liquid Diet [DIET] 02/05/19 08:00 Sennosides/Docusate Sodium [Stool Softener-Laxative] 50 mg PO DAILY Plan: Will admit to observation for weakness, unable to eat, weight loss, oral ulcers to mouth. IV of D5 1/2 Nacl at 125cc/hr. Labs completed. WBC 2.4, PLT 342, Neutr 45.4, Hgb 9.5, BUN 16, Creat 0.56. Pt is taking oral fluids, sipping on water and apple juice and voiding well. Order magic mouthwash, I/O, VS q 4 hour , clear liquid diet and advance as tolerated. DNR form signed by pt and this provider.
[2019-02-04] MEDS: Dextrose 5%-0.45% NaCl 1,000 ML IV SCH ×2 (11:50→19:21)
[2019-02-04] MEDS: Diphenhydramine/Lidocaine/Nystatin Suspension 237 ML Bottle PO SCH ×2 (12:00→16:00)
[2019-02-04] MEDS ORDERED: LIDOCAINE 2% PRN ×2 (12:08→12:55)
[2019-02-04] MEDS ORDERED: DEXAMETHASONE 0.5 MG PO SCH (16:00)
[2019-02-04] MEDS: DEXAMETHASONE PO SCH ×2 (16:30→19:55)
[2019-02-04] MEDS: LIDOCAINE PO SCH (20:34)
[2019-02-04] MEDS: DIPHENHYDRAMINE PO SCH (20:34)
[2019-02-04] MEDS: NYSTATIN PO SCH (20:34)
[2019-02-05] MEDS: Dextrose 5%-0.45% NaCl 1,000 ML IV SCH ×3 (03:26→22:48)
[2019-02-05] MEDS: OXYCODONE PO PRN (07:42)
[2019-02-05] MEDS: ACETAMINOPHEN PO PRN (07:42)
[2019-02-05] MEDS: DEXAMETHASONE PO SCH ×4 (07:52→19:49)
[2019-02-05] MEDS: DIPHENHYDRAMINE PO SCH ×4 (08:19→19:48)
[2019-02-05] MEDS: NYSTATIN PO SCH ×4 (08:19→19:48)
[2019-02-05] MEDS: LIDOCAINE PO SCH ×4 (08:19→19:48)
[2019-02-05] MEDS: [UNRECOGNIZED DRUG - OTHER] PO SCH (08:19)
[2019-02-05] MEDS: SENNOSIDES PO SCH (08:19)
[2019-02-05] MEDS: DOCUSATE SODIUM PO SCH (08:19)
[2019-02-05] MEDS ORDERED: Albumin 25% 200 ML IV ONE (08:33)
[2019-02-05] MEDS: Morphine 15 MG Tab.ER PO SCH (09:00)
[2019-02-05] MEDS ORDERED: Dextrose 5%-0.45% NaCl 1,000 ML IV SCH (13:15)
[2019-02-05] MEDS ORDERED: CALMOSEPTINE OINTMENT TOP PRN (16:16)
--- NOTE | 2019-02-05 20:25 | PCM.PN ---
- General Info Date of Service: 02/05/19 Admission Dx/Problem (Free Text): weakness, mouth sores, anemia Functional Status: Reports: Pain Controlled, Tolerating Diet, Urinating - Review of Systems General: Reports: Weakness HEENT: Reports: No Symptoms Pulmonary: Reports: No Symptoms. Denies: Cough, Hemoptysis Cardiovascular: Denies: Chest Pain, Palpitations, Edema Gastrointestinal: Reports: Decreased Appetite, Other (loose BM). Denies: Abdominal Pain Genitourinary: Reports: No Symptoms Musculoskeletal: Reports: No Symptoms Skin: Reports: No Symptoms Neurological: Reports: Weakness Psychiatric: Reports: No Symptoms - Patient Data Vitals - Most Recent: Last Vital Signs Temp 98.3 F 02/05/19 20:00 Pulse 64 02/05/19 20:00 Resp 16 02/05/19 20:00 BP 78/49 L 02/05/19 20:00 Pulse Ox 100 02/05/19 20:00 Weight - Most Recent: 135 lb I&O - Last 24 Hours: Intake & Output 02/05/19 02/05/19 02/05/19 06:59 14:59 22:59 Intake Total 1600 1350 Balance 1600 1350 Lab Results Last 24 Hours: Laboratory Results - last 24 hr 02/05/19 02/05/19 Range/Units 11:30 11:30 WBC 2.1 L (4.0-11.0) K/uL RBC 3.15 L (4.50-6.50) M/uL Hgb 8.3 L (13.0-18.0) g/dL Hct 26.0 L (40.0-54.0) % MCV 83 (76-96) fL MCH 26.3 L (27.0-32.0) pg MCHC 31.9 (31.0-35.0) g/dL RDW 17.6 H (11.0-16.0) % Plt Count 295 (150-400) K/uL MPV 8.6 (6.0-10.0) fL Neut % (Auto) 45.7 (45.0-70.0) % Lymph % (Auto) 39.5 (20.0-40.0) % Boyle % (Auto) 14.3 H (3.0-10.0) % Eos % (Auto) 0.5 L (1.0-5.0) % Baso % (Auto) 0.0 (0.0-0.5) % Neut # (Auto) 0.96 L (2.00-7.50) K/uL Lymph # (Auto) 0.83 L (1.50-4.00) K/uL Boyle # (Auto) 0.30 (0.20-0.80) K/uL Eos # (Auto) 0.01 L (0.04-0.40) K/uL Baso # (Auto) 0.00 L (0.02-0.10) K/uL Blood Type O POSITIVE Gel Antibody Screen Negative Crossmatch See Detail Tucker Results Last 24 Hours: Microbiology 02/04/19 Unknown MRSA Surveillance Culture - Final Nares, Left NO MRSA ISOLATED Med Orders - Current: Current Medications Diphenhydramine/Nystatin/Lidocaine (Magic Mouthwash) 5 ml PO QIDACANDBED [facility] Last Admin: 02/05/19 19:48 Dose: 5 ml Dextrose/Sodium Chloride (Dextrose 5%-1/2 Ns) 1,000 mls @ 75 mls/hr IV ASDIRECTED [facility] Last Admin: 02/05/19 14:05 Dose: 75 mls/hr Morphine Sulfate (Ms Contin) 15 mg PO DAILY [facility] Last Admin: 02/05/19 09:00 Dose: 15 mg Oxycodone/Acetaminophen 5mg- 325mg 5 mg PO Q4H PRN PRN Reason: MODERATE PAIN Last Admin: 02/05/19 07:42 Dose: 5 mg Non-Formulary Medication (Sennosides/Docusate Sodium [Stool Softener-Laxative]) 50 mg PO DAILY [facility] Last Admin: 02/05/19 08:19 Dose: 50 mg Non-Formulary Medication (Lidocaine 2% [Xylocaine 2% Viscous]) 5 ml .XX TIDMEALS PRN PRN Reason: Pain Non-Formulary Medication (Dexamethasone [Dexamethasone]) 10 ml PO QID [facility] Last Admin: 02/05/19 19:49 Dose: 10 ml Calmoseptine (Ointment) 1 each TOP ASDIRECTED PRN PRN Reason: RASH Last Admin: 02/05/19 16:37 Dose: 1 each Discontinued Medications Diphenhydramine/Nystatin/Lidocaine (Magic Mouthwash) 5 ml PO QID [facility] Last Admin: 02/04/19 16:00 Dose: Not Given Dextrose/Sodium Chloride (Dextrose 5%-1/2 Ns) 1,000 mls @ 75 mls/hr IV ASDIRECTED [facility] Last Admin: 02/05/19 03:26 Dose: 125 mls/hr Albumin Human (Flexbumin 25%) 200 mls @ 75 mls/hr IV ONETIME ONE Stop: 02/05/19 11:12 Last Admin: 02/05/19 09:46 Dose: 75 mls/hr Dextrose/Sodium Chloride (Dextrose 5%-1/2 Ns) 1,000 mls @ 75 mls/hr IV ASDIRECTED [facility] Non-Formulary Medication (Dexamethasone [Dexamethasone]) 0.5 mg PO QID [facility] Last Admin: 02/04/19 12:38 Dose: 0.5 mg Non-Formulary Medication (Lidocaine 2% [Xylocaine 2% Viscous]) 100 ml .XX TIDMEALS PRN PRN Reason: Pain - Exam Quality Assessment: Central Line/PICC General: Alert, Oriented, Cooperative, No Acute Distress HEENT: Pupils Equal, Mucous Membr. Moist/[place], Other (mouth sores improving, states less painful) Neck: Supple, Trachea Midline, No JVD Lungs: Clear to Auscultation, Normal Respiratory Effort Cardiovascular: Regular Rate, Regular Rhythm GI/Abdominal Exam: Normal Bowel Sounds, Soft, Non-Tender, No Distention Back Exam: No: Paraspinal Tenderness, Vertebral Tenderness Extremities: No Pedal Edema. No: Joint Swelling, Leg Pain Skin: Warm, Dry, Other (RN using Calmoseptine to skin to tailbone area) Neurological: No New Focal Deficit Psy/Mental Status: Alert, Normal Affect, Normal Mood Sepsis Event Note - Evaluation Sepsis Screening Result: No Definite Risk - Focused Exam Vital Signs: Vital Signs Temp Pulse Resp BP Pulse Ox 02/05/19 20:00 98.3 F 64 16 78/49 L 100 02/05/19 18:00 99.4 F 60 16 101/86 94 L 02/05/19 14:03 99.4 F 60 16 85/49 L 99 Date Exam was Performed: 02/05/19 Time Exam was Performed: 20:30 - Problem List & Annotations (1) Aphthous ulcer of mouth SNOMED Code(s): 920262843 Code(s): K12.0 - RECURRENT ORAL APHTHAE Status: Acute Current Visit: Yes (2) Weakness SNOMED Code(s): 23800275 Code(s): R53.1 - WEAKNESS Status: Acute Current Visit: Yes (3) Anemia SNOMED Code(s): 640146759 Code(s): D64.9 - ANEMIA, UNSPECIFIED Status: Acute Current Visit: No - Problem List Review Problem List Initiated/Reviewed/Updated: Yes - My Orders Last 24 Hours: My Active Orders 02/04/19 20:00 Diphenhyd/Lidocaine/Nystatin [Magic Mouthwash] 5 ml PO QIDACANDBED 02/05/19 08:00 Sennosides/Docusate Sodium [Stool Softener-Laxative] 50 mg PO DAILY 02/05/19 11:30 AB SCREEN (GEL) [BBK] Routine ABO/RH TYPE [BBK] Routine PACKED CELLS [RED BLOOD CELLS LP] [BBK] Routine 02/05/19 13:30 Dextrose 5%-0.45% NaCl [Dextrose 5%-1/2 NS] 1,000 ml IV ASDIRECTED 02/05/19 16:16 Non-Formulary Medication [NF Drug] 1 each TOP ASDIRECTED PRN 02/05/19 Dinner Soft Diet [DIET] - Plan Plan:: Hgb decrease to 8.3 after IV fluid hydration. Pt is taking clear liquids well and wants to try some soft and full liquid. Advance diet as tolerated. Consult with Dr Chowdhury 02-04-2019, reviewed WBC results, recommends no Neupogen at this time. Consult with Dr Serrano, pt PCP and labs for today for CBC, Albumin IV and transfuse PRBC's X 2. Discussion with pt of PRBC's and pt in agreement with this. Will transfuse in am, when staff available and blood blank replenished. Pain improved today and using Calmoseptine to tailbone area with relief stated per pt. Pt is trying to shift weight off tailbone, while in bed.
[2019-02-06] MEDS: ACETAMINOPHEN PO PRN ×2 (05:47)
[2019-02-06] MEDS: OXYCODONE PO PRN ×2 (05:47)
[2019-02-06] MEDS: LIDOCAINE PO SCH ×2 (07:52→11:18)
[2019-02-06] MEDS: NYSTATIN PO SCH ×2 (07:52→11:18)
[2019-02-06] MEDS: DIPHENHYDRAMINE PO SCH ×2 (07:52→11:18)
[2019-02-06] MEDS: Morphine 15 MG Tab.ER PO SCH (07:52)
[2019-02-06] MEDS: DEXAMETHASONE PO SCH ×2 (07:53→11:16)
[2019-02-06] MEDS: SENNOSIDES PO SCH (11:16)
[2019-02-06] MEDS: [UNRECOGNIZED DRUG - OTHER] PO SCH (11:16)
[2019-02-06] MEDS: DOCUSATE SODIUM PO SCH (11:16)
--- NOTE | 2019-02-11 21:01 | PCM.DCSUM1 ---
Discharge Summary - Hospital Course HPI Initial Comments: pt was admitted with weakness and oral ulcers and pain. IV fluids and magic mouthwash used and symptoms improved. Appetite and intake improved some. Anemia noted and Blood transfusion of 2 units PRBCs. Pt tolerated well. Diagnosis: Stroke: No - Discharge Data Discharge Date: 02/06/19 Discharge Disposition: Home, W Home Health Agency 06 Condition: Fair - Referral to Home Health Date of Face to Face Encounter: 02/06/19 Reason for Homebound Status: weakness, anemia, post chemotherapy, metastatic CA Primary Care Physician: PCP None Skilled Need: Monitor VS, medication review, skilled observation and assessment. - Discharge Diagnosis/Problem(s) (1) Aphthous ulcer of mouth SNOMED Code(s): 057549484 ICD Code: K12.0 - RECURRENT ORAL APHTHAE Status: Acute (2) Weakness SNOMED Code(s): 94498278 ICD Code: R53.1 - WEAKNESS Status: Acute (3) Anemia SNOMED Code(s): 644129393 ICD Code: D64.9 - ANEMIA, UNSPECIFIED Status: Acute - Patient Instructions Diet: Mechanical Soft Activity: As Tolerated, Rest and Relax Today Showering/Bathing: May Shower Notify Provider of: Fever, Increased Pain, Nausea and/or Vomiting - Discharge Plan *PRESCRIPTION DRUG MONITORING PROGRAM REVIEWED*: Not Applicable *COPY OF PRESCRIPTION DRUG MONITORING REPORT IN PATIENT LALIT: Not Applicable Home Medications: Home Meds Lidocaine 2% [Xylocaine 2% Viscous] 100 ml .XX TIDMEALS PRN 02/04/19 [History] Sennosides/Docusate Sodium [Stool Softener-Laxative] 50 mg PO DAILY 02/04/19 [ History] dexAMETHasone [Dexamethasone] 0.5 mg PO QID 02/04/19 [History] oxyCODONE 5 mg PO Q4HR PRN 02/04/19 [History] Forms: ED Department Discharge Referrals: PCP,None [Primary Care Provider] - - Discharge Summary/Plan Comment DC Time >30 min.: No Discharge Summary/Plan Comment: Discharge to home with care of family. Follow-up with oncology next week as scheduled. Continue with use of magic mouthwash until ulcers healed. RTC with PCP as needed. - Patient Data Vitals - Most Recent: Last Vital Signs Temp 97.4 F 02/06/19 14:00 Pulse 56 L 02/06/19 14:00 Resp 18 02/06/19 08:15 BP 97/59 L 02/06/19 14:00 Pulse Ox 98 02/06/19 14:00 Weight - Most Recent: 135 lb Med Orders - Current: Current Medications Discontinued Medications Diphenhydramine/Nystatin/Lidocaine (Magic Mouthwash) 5 ml PO QID [facility] Last Admin: 02/04/19 16:00 Dose: Not Given Diphenhydramine/Nystatin/Lidocaine (Magic Mouthwash) 5 ml PO QIDACANDBED [facility] Last Admin: 02/06/19 11:18 Dose: 5 ml Dextrose/Sodium Chloride (Dextrose 5%-1/2 Ns) 1,000 mls @ 75 mls/hr IV ASDIRECTED [facility] Last Admin: 02/05/19 03:26 Dose: 125 mls/hr Albumin Human (Flexbumin 25%) 200 mls @ 75 mls/hr IV ONETIME ONE Stop: 02/05/19 11:12 Last Admin: 02/05/19 09:46 Dose: 75 mls/hr Dextrose/Sodium Chloride (Dextrose 5%-1/2 Ns) 1,000 mls @ 75 mls/hr IV ASDIRECTED [facility] Dextrose/Sodium Chloride (Dextrose 5%-1/2 Ns) 1,000 mls @ 75 mls/hr IV ASDIRECTED [facility] Last Admin: 02/05/19 22:48 Dose: 75 mls/hr Morphine Sulfate (Ms Contin) 15 mg PO DAILY [facility] Last Admin: 02/06/19 07:52 Dose: 15 mg Non-Formulary Medication (Dexamethasone [Dexamethasone]) 0.5 mg PO QID [facility] Last Admin: 02/04/19 12:38 Dose: 0.5 mg Non-Formulary Medication (Lidocaine 2% [Xylocaine 2% Viscous]) 100 ml .XX TIDMEALS PRN PRN Reason: Pain Oxycodone/Acetaminophen 5mg- 325mg 5 mg PO Q4H PRN PRN Reason: MODERATE PAIN Last Admin: 02/06/19 05:47 Dose: 5 mg Non-Formulary Medication (Sennosides/Docusate Sodium [Stool Softener-Laxative]) 50 mg PO DAILY [facility] Last Admin: 02/06/19 11:16 Dose: Not Given Non-Formulary Medication (Lidocaine 2% [Xylocaine 2% Viscous]) 5 ml .XX TIDMEALS PRN PRN Reason: Pain Non-Formulary Medication (Dexamethasone [Dexamethasone]) 10 ml PO QID [facility] Last Admin: 02/06/19 11:16 Dose: 10 ml Calmoseptine (Ointment) 1 each TOP ASDIRECTED PRN PRN Reason: RASH Last Admin: 02/05/19 16:37 Dose: 1 each
== END 2019-02-06 15:15 | disposition home health service (06) ==
LOC: LB.ED 09:51 → LB.MS 11:48
PROVIDERS: ADMIT Nurse Practitioner Family; ATTEND Nurse Practitioner Family
DX: K12.0 Recurrent oral aphthae (principal); D64.9 Anemia, unspecified; R63.4 Abnormal weight loss; Z66 Do not resuscitate; Z79.52 Long term (current) use of systemic steroids; Z79.899 Other long term (current) drug therapy
CPT/HCPCS: 36415; 36430; 80053; 85025; 86850; 86900; 86901; 86920; 86922; 96361; 96374; 99285; A9270-GY; G0378; J7042; P9016; P9047

== ENCOUNTER → 2019-02-19 | Outpatient (CLI) | payer MEDICARE | LOC: LB.CLINIC 16:27 | PROVIDERS: ATTEND Nurse Practitioner Family | DX: T14.8XXA Other injury of unspecified body region, initial encounter (principal) | CPT/HCPCS: 87070; 87205 ==

== ENCOUNTER 2019-03-22 11:26 | Emergency (ER) | payer MEDICARE ==
[2019-03-22] MEDS ORDERED: Cephalexin 500 MG Cap ONE (12:55)
[2019-03-22] MEDS ORDERED: Azithromycin 250 MG Tab ONE (12:55)
[2019-03-22] MEDS: cefTRIAXone 1 GM in Sodium Chloride 0.9% 50 ML IV ONE (13:03)
[2019-03-22] MEDS: cefTRIAXone 1 GM Vial ONE (13:12)
[2019-03-22] MEDS: Azithromycin 500 MG in Sodium Chloride 0.9% 250 ML IV ONE (13:27)
--- NOTE | 2019-03-22 14:10 | ER ---
HISTORY OF PRESENT ILLNESS: An 78-year-old male who comes in with family members with complaints of being short of breath and having chest congestion since last or Saturday. The patient has not been running a fever to his knowledge, but he has an occasional cough which is very coarse and wet in nature. The patient denies any problems with nausea, vomiting, or diarrhea. He has not had any falls or injuries. 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 He still lives at home with home health care helping him out, and both the patient and his family tell us this is going okay. OBJECTIVE: GENERAL APPEARANCE: The patient is awake and alert. He is pale, thin in nature. VITAL SIGNS: Reviewed. He is afebrile. Pulse is 115, blood pressure 109/91, respirations 28, O2 sats 94% on room air. HEENT: Oral mucous membranes are slightly dry. Tonsils are not enlarged or injected. Pharynx not inflamed. NECK: Supple. LUNGS: Reveal rhonchi throughout the lung land. I do not hear any wheezes. SKIN: Warm and dry. LABORATORY DATA AND X-RAY: Chest x-ray is obtained showing a lot of what looks like fluid or possible infection of the right lung. Radiologist report talks about near or whiteout of the right lung, possibly due to a large effusion, possibly pneumonia or a mass. Labs include a CBC showing a white count is up at 14.7, hemoglobin of 10.9. Comprehensive metabolic panel is largely unremarkable. BNP is 508, just slightly elevated. DIAGNOSIS: Pneumonia. TREATMENT PLAN: We had a discussion about the patient being admitted versus going home on antibiotics. His family would like him to be on IV antibiotics for a day or two if possible. The patient states he just wants to go home. He does not want to be admitted. Therefore, we will give the patient antibiotics here in IV form today. He will be given Zithromax 500 mg IV followed by Rocephin 1 g IV. The patient will then be discharged home on p.o. medications, putting him on Keflex 500 mg b.i.d. starting tomorrow, and Zithromax 250 mg a day for the next 4 days. The patient is to go home. Activity should be minimal as tolerated. They are to monitor him closely. If his condition is not improving within a couple of days, he is to come back for a recheck and most likely admission. If his condition improves, a recheck should be sometime in mid to late next week. The patient and his family members are agreeable with this treatment plan and have no further questions. CRS/MODL /[id number]
--- NOTE | 2019-03-22 20:58 | CR ---
DATE OF SERVICE: 03/22/2019 CLINICAL DATA: SOB. AP CHEST: Comparison is made to a prior exam dated 01/28/2009. There is a right-sided central venous catheter in place with its distal tip in the region of the superior vena cava. There is a large right pleural effusion. There is atelectasis and dense consolidation in the right mid and lower lung. There is poorly defined infiltrate with nodular densities in the left lower lung. Pneumonia should be considered. No left pleural effusion. No pneumothorax. Followup exam is recommended. [id number] MTDD
== END 2019-03-22 14:37 | disposition home or self-care (01) ==
LOC: LB.ED 11:26
DX: J18.9 Pneumonia, unspecified organism (principal)
CPT/HCPCS: 36415; 71045; 80053; 83880; 85025; 96365; 96367; 99284; 99285-25; A9270-GY; J0456; J0696; J7050

== ENCOUNTER 2019-03-23 09:24 | Emergency (ER) | payer MEDICARE ==
[2019-03-23] MEDS ORDERED: Sodium Chloride 0.9% 10 ML Syringe FLUSH PRN (09:45)
--- NOTE | 2019-03-23 10:59 | CR ---
DATE OF SERVICE: 03/23/2019 CLINICAL DATA: shortness of breath AP CHEST: The right-sided central venous catheter remains unchanged in position. There is a persistent large right pleural effusion that has increased in volume from the prior study. There is progressive atelectasis and consolidation of the right lung. There is pulmonary vascular congestion on the left. The poorly defined infiltrate and nodular densities on the left appear more prominent than on the prior study. No other interval changes. No pneumothorax. No pleural effusion on the left. [id number] MTDD
--- NOTE | 2019-03-23 11:49 | EDM.PDOC ---
ED HPI GENERAL MEDICAL PROBLEM - General Chief Complaint: Respiratory Problem Stated Complaint: SHORTNESS OF BREATH Time Seen by Provider: 03/23/19 09:48 Source of Information: Reports: Patient, Family, RN Notes Reviewed History Limitations: Reports: No Limitations - History of Present Illness INITIAL COMMENTS - FREE TEXT/NARRATIVE: This is a 78yo M here for shortness of breath. He notes the symptoms get worse the past few days. He went to the ER last night and now is also worse. 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 He does have metastasis. He feels weak but denies any pain. Onset: Gradual Duration: Day(s):, Getting Worse Location: Reports: Chest, Generalized Severity: Moderate Improves with: Reports: None Worsens with: Reports: Movement Associated Symptoms: Reports: Shortness of Breath, Weakness - Related Data Allergies Allergy/AdvReac Type Severity Reaction Status Date / Time No Known Allergies Allergy Verified 03/23/19 09:43 Home Meds: Home Meds dexAMETHasone [Dexamethasone] 0.5 mg PO DAILY 02/04/19 [History] oxyCODONE 10 mg PO Q4HR PRN 02/04/19 [History] Apixaban [Eliquis] 5 mg PO DAILY 03/22/19 [History] Mirtazapine 15 mg PO DAILY 03/22/19 [History] Morphine [MS Contin] 15 mg PO DAILY 03/22/19 [History] Potassium Chloride [Klor-Con M15] 20 meq PO DAILY 03/22/19 [History] Tamsulosin [Flomax] 0.4 mg PO DAILY 03/22/19 [History] Crisaborole [Eucrisa] 2 gm TOP BID 03/23/19 [History] Loperamide [Imodium] 2 mg PO QID 03/23/19 [History] Magnesium 133 mg PO BID 03/23/19 [History] Mirtazapine [Remeron] 15 mg PO DAILY 03/23/19 [History] Nystatin 4 - 6 ml PO QID PRN 03/23/19 [History] Potassium Chloride [Klor-Con M20] 20 meq PO ASDIRECTED 03/23/19 [History] Prochlorperazine [Compazine] 10 mg PO QID PRN 03/23/19 [History] dexAMETHasone [Decadron] 1 mg PO DAILY 03/23/19 [History] polyethylene glycoL 3350 [MiraLAX] 1 tbs PO DAILY 03/23/19 [History] Past Medical History - Past Health History Medical/Surgical History: Denies Medical/Surgical History Respiratory History: Reports: Other (See Below) Other Respiratory History: Lung cancer Gastrointestinal History: Reports: Other (See Below) Other Gastrointestinal History: large cecal mass, colon cancer Genitourinary History: Reports: Prostate Disorder Other Genitourinary History: Prostate cancer Hematologic History: Reports: Anticoagulation Therapy Oncologic (Cancer) History: Reports: Colon, Liver, Metastatic, Prostate - Infectious Disease History Infectious Disease History: Reports: Chicken Pox, Measles - Past Surgical History GI Surgical History: Reports: Other (See Below) Other GI Surgeries/Procedures: Hemicolectomy Male Surgical History: Reports: Circumcision Musculoskeletal Surgical History: Reports: Other (See Below) Other Musculoskeletal Surgeries/Procedures:: Weakness Social & Family History - Family History Family Medical History: Noncontributory - Tobacco Use Smoking Status *Q: Former Smoker Used Tobacco, but Quit: Yes Month/Year Tobacco Last Used: 2009 Second Hand Smoke Exposure: No - Caffeine Use Caffeine Use: Reports: None ED ROS GENERAL - Review of Systems Review Of Systems: Comprehensive ROS is negative, except as noted in HPI. ED EXAM, GENERAL - Physical Exam Exam: See Below Exam Limited By: No Limitations General Appearance: Alert, WD/WN, Mild Distress Eye Exam: Bilateral Eye: EOMI, PERRL Ears: Normal External Exam Nose: Normal Inspection Throat/Mouth: Normal Inspection Head: Atraumatic, Normocephalic Neck: Normal Inspection, Supple, Non-Tender Respiratory/Chest: Decreased Breath Sounds, Rales Cardiovascular: Normal Peripheral Pulses, Tachycardia Peripheral Pulses: 2+: Dorsalis Pedis (L), Dorsalis Pedis (R) GI/Abdominal: Normal Bowel Sounds Extremities: Normal Inspection Course - Vital Signs Last Recorded V/S: Last Vital Signs Temp 36.6 C 03/23/19 10:01 Pulse 108 H 03/23/19 10:25 Resp 16 03/23/19 10:25 BP 127/80 03/23/19 10:25 Pulse Ox 97 03/23/19 10:25 - Orders/Labs/Meds Orders: Active Orders 24 hr Category Date Time Status Chest 1V Frontal [CR] Stat Exams 03/23/19 09:56 Ordered Chest Abdomen Pelvis wo Cont [CT] Stat Exams 03/23/19 09:54 Taken CULTURE BLOOD [BC] Stat Lab 03/23/19 10:00 Received CULTURE BLOOD [BC] Urgent Lab 03/23/19 11:00 Received CULTURE SPUTUM + SMEAR [RM] Urgent Lab 03/23/19 09:45 Ordered Sodium Chloride 0.9% [Saline Flush] Med 03/23/19 09:45 Active 10 ml FLUSH ASDIRECTED PRN Peripheral IV Insertion Adult [OM.PC] Urgent Oth 03/23/19 09:45 Ordered Medication Orders Sodium Chloride (Saline Flush) 10 ml FLUSH ASDIRECTED PRN PRN Reason: Keep Vein Open Labs: Laboratory Tests 03/23/19 03/23/19 03/23/19 Range/Units 10:00 10:00 10:00 WBC 14.8 H (4.0-11.0) K/uL RBC 3.76 L (4.50-6.50) M/uL Hgb 10.0 L (13.0-18.0) g/dL Hct 33.0 L (40.0-54.0) % MCV 88 (76-96) fL MCH 26.6 L (27.0-32.0) pg MCHC 30.3 L (31.0-35.0) g/dL RDW 17.5 H (11.0-16.0) % Plt Count 341 (150-400) K/uL MPV 8.4 (6.0-10.0) fL Neut % (Auto) 77.4 H (45.0-70.0) % Lymph % (Auto) 10.8 L (20.0-40.0) % [place] % (Auto) 10.8 H (3.0-10.0) % Eos % (Auto) 0.3 L (1.0-5.0) % Baso % (Auto) 0.7 H (0.0-0.5) % Neut # (Auto) 11.47 H (2.00-7.50) K/uL Lymph # (Auto) 1.61 (1.50-4.00) K/uL [place] # (Auto) 1.60 H (0.20-0.80) K/uL Eos # (Auto) 0.05 (0.04-0.40) K/uL Baso # (Auto) 0.11 H (0.02-0.10) K/uL Sodium 136 (136-145) mmol/L Potassium 3.6 (3.5-5.1) mmol/L Chloride 100 (98-107) mmol/L Carbon Dioxide 24.5 D (21.0-32.0) mmol/L Anion Gap 15.1 H (5.0-15.0) mmol/L BUN 21 (8-26) mg/dL Creatinine 0.85 (0.70-1.30) mg/dL Est Cr Clr Drug Dosing TNP Estimated GFR (MDRD) > 60 (>60) MLS/MIN BUN/Creatinine Ratio 24.7 (6-25) Glucose 171 H (74-100) mg/dL Lactic Acid (0.90-1.70) mmol/L Calcium 8.3 L (8.5-10.1) mg/dL Total Bilirubin 0.4 D (0.0-1.0) mg/dL AST 74 H (15-37) U/L ALT 28 (12-78) U/L Alkaline Phosphatase 538 H (46-116) U/L Troponin I < 0.017 (0.000-0.060) ng/mL B-Natriuretic Peptide 429 (0-450) pg/mL Total Protein 7.0 (6.4-8.2) g/dL Albumin 1.6 L (3.4-5.0) g/dL Globulin 5.4 H (2.2-4.2) g/dL Albumin/Globulin Ratio 0.3 L (0.8-2.0) TSH, Ultra Sensitive 11.558 H D (0.358-3.740) uIU/mL 03/23/19 Range/Units 10:00 WBC (4.0-11.0) K/uL RBC (4.50-6.50) M/uL Hgb (13.0-18.0) g/dL Hct (40.0-54.0) % MCV (76-96) fL MCH (27.0-32.0) pg MCHC (31.0-35.0) g/dL RDW (11.0-16.0) % Plt Count (150-400) K/uL MPV (6.0-10.0) fL Neut % (Auto) (45.0-70.0) % Lymph % (Auto) (20.0-40.0) % [place] % (Auto) (3.0-10.0) % Eos % (Auto) (1.0-5.0) % Baso % (Auto) (0.0-0.5) % Neut # (Auto) (2.00-7.50) K/uL Lymph # (Auto) (1.50-4.00) K/uL [place] # (Auto) (0.20-0.80) K/uL Eos # (Auto) (0.04-0.40) K/uL Baso # (Auto) (0.02-0.10) K/uL Sodium (136-145) mmol/L Potassium (3.5-5.1) mmol/L Chloride (98-107) mmol/L Carbon Dioxide (21.0-32.0) mmol/L Anion Gap (5.0-15.0) mmol/L BUN (8-26) mg/dL Creatinine (0.70-1.30) mg/dL Est Cr Clr Drug Dosing Estimated GFR (MDRD) (>60) MLS/MIN BUN/Creatinine Ratio (6-25) Glucose (74-100) mg/dL Lactic Acid 4.02 H (0.90-1.70) mmol/L Calcium (8.5-10.1) mg/dL Total Bilirubin (0.0-1.0) mg/dL AST (15-37) U/L ALT (12-78) U/L Alkaline Phosphatase (46-116) U/L Troponin I (0.000-0.060) ng/mL B-Natriuretic Peptide (0-450) pg/mL Total Protein (6.4-8.2) g/dL Albumin (3.4-5.0) g/dL Globulin (2.2-4.2) g/dL Albumin/Globulin Ratio (0.8-2.0) TSH, Ultra Sensitive (0.358-3.740) uIU/mL Meds: Medications Generic Name Dose Route Start Last Admin Trade Name Freq PRN Reason Stop Dose Admin Sodium Chloride 10 ml 03/23/19 09:45 Saline Flush FLUSH ASDIRECTED PRN Keep Vein Open Departure - Departure Time of Disposition: 12:30 Disposition: DC/Tfer to [facility] 02 Condition: Undetermined Clinical Impression: Pleural effusion on right, Shortness of breath Pneumonia Qualifiers: Pneumonia type: due to unspecified organism Laterality: right Lung location: unspecified part of lung Qualified Code(s): J18.9 - Pneumonia, unspecified organism Metastatic adenocarcinoma to lung Qualifiers: Laterality: unspecified laterality Qualified Code(s): C78.00 - Secondary malignant neoplasm of unspecified lung - Discharge Information Instructions: Shortness of Breath, Adult Referrals: PCP,None [Primary Care Provider] - Forms: ED Department Discharge Care Plan Goals: Transfer to [place], [place] Sepsis Event Note - Evaluation Sepsis Screening Result: No Definite Risk - Focused Exam Vital Signs: Vital Signs Temp Pulse Resp BP Pulse Ox 03/23/19 10:25 108 H 16 127/80 97 03/23/19 10:01 36.6 C 116 H 15 121/78 Date Exam was Performed: 03/23/19 Time Exam was Performed: 11:44 - Problem List & Annotations (1) Palliative care patient SNOMED Code(s): 731868279 Code(s): Z51.5 - ENCOUNTER FOR PALLIATIVE CARE Status: Chronic Priority: High Current Visit: Yes (2) Weakness SNOMED Code(s): 69792878 Code(s): R53.1 - WEAKNESS Status: Acute Priority: High Current Visit: Yes (3) Metastatic adenocarcinoma to lung SNOMED Code(s): 8000464502556 Code(s): C78.00 - SECONDARY MALIGNANT NEOPLASM OF UNSPECIFIED LUNG Status: Acute Priority: High Current Visit: Yes Qualifiers: Laterality: unspecified laterality Qualified Code(s): C78.00 - Secondary malignant neoplasm of unspecified lung (4) Pleural effusion on right SNOMED Code(s): 27528254 Code(s): J90 - PLEURAL EFFUSION, NOT ELSEWHERE CLASSIFIED Status: Acute Priority: High Current Visit: Yes (5) Pneumonia SNOMED Code(s): 553789673 Code(s): J18.9 - PNEUMONIA, UNSPECIFIED ORGANISM Status: Acute Priority: High Current Visit: Yes Qualifiers: Pneumonia type: due to unspecified organism Laterality: right Lung location: unspecified part of lung Qualified Code(s): J18.9 - Pneumonia, unspecified organism (6) Shortness of breath SNOMED Code(s): 112606009 Code(s): R06.02 - SHORTNESS OF BREATH Status: Acute Current Visit: Yes - Problem List Review Problem List Initiated/Reviewed/Updated: Yes - My Orders Last 24 Hours: My Active Orders 03/23/19 09:45 CULTURE SPUTUM + SMEAR [RM] Urgent Sodium Chloride 0.9% [Saline Flush] 10 ml FLUSH ASDIRECTED PRN Peripheral IV Insertion Adult [OM.PC] Urgent 03/23/19 09:54 Chest Abdomen Pelvis wo Cont [CT] Stat 03/23/19 09:56 Chest 1V Frontal [CR] Stat 03/23/19 10:00 CULTURE BLOOD [BC] Stat 03/23/19 11:00 CULTURE BLOOD [BC] Urgent - Assessment/Plan Last 24 Hours: My Active Orders 03/23/19 09:45 CULTURE SPUTUM + SMEAR [RM] Urgent Sodium Chloride 0.9% [Saline Flush] 10 ml FLUSH ASDIRECTED PRN Peripheral IV Insertion Adult [OM.PC] Urgent 03/23/19 09:54 Chest Abdomen Pelvis wo Cont [CT] Stat 03/23/19 09:56 Chest 1V Frontal [CR] Stat 03/23/19 10:00 CULTURE BLOOD [BC] Stat 03/23/19 11:00 CULTURE BLOOD [BC] Urgent Plan: Patient and family counseled on results of labs and imaging. Discussed the need for further interventions and risks. Discussed transfer to [facility] for further care and interventions at this time. Patient to be transferred to 2nd floor [facility] under Dr. Lucia.
--- NOTE | 2019-03-23 13:27 | CT ---
Date of Service: 03/23/19 Clinical Data: shortness UNENHANCED CHEST CT: Multislice axial acquisition through the chest without IV contrast was performed. Comparison is made to a prior exam dated 10/31/18. There is a large right pleural effusion. There is marked atelectasis and dense consolidation in the right lung with minimal residual aeration of the right upper lobe. There are numerous varying sized soft tissue nodules scattered throughout both visualized lungs consistent with diffuse pulmonary metastases. There are multiple low-density lesions in the liver consistent with hepatic metastases. No other significant interval changes from the prior study. UNENHANCED ABDOMEN AND PELVIC CT: Multislice acquisition through the abdomen and pelvis without IV or oral contrast was performed. Comparison was made to a prior exam dated 10/31/18. There are multiple low-density lesions within the liver consistent with diffuse hepatic metastases. These have increased in size and number from the prior exam. Some of them do contain hyperdense foci consistent with calcification or possibly hemorrhage. There is an enlarged lymph node anterior to the inferior vena cava and aorta. It measures 2.9 cm axially. Metastatic adenopathy is assumed. There is a small amount of free fluid noted within the pelvis. No other significant interval changes from the prior study. IMPRESSION: Progressive hepatic metastatic disease. Periaortic adenopathy presumed to be metastatic. [id number] [facility]
== END 2019-03-23 12:00 ==
LOC: LB.ED 09:24
DX: J18.9 Pneumonia, unspecified organism (principal); C78.00 Secondary malignant neoplasm of unspecified lung; Z85.46 Personal history of malignant neoplasm of prostate; Z79.01 Long term (current) use of anticoagulants; Z79.899 Other long term (current) drug therapy; Z85.118 Personal history of other malignant neoplasm of bronchus and lung; Z87.891 Personal history of nicotine dependence
CPT/HCPCS: 36415; 71045; 71250; 74176; 80053; 83605; 83880; 84443; 84484; 85025; 87040; 87804; 87804-59; 99285; 99285-25; A0425; A0429